=== PATIENT | female | born 1955 | race Caucasian/White ===

== ENCOUNTER 2018-05-16 15:38 | Emergency (ER) | payer OTHER ==
[2018-05-16] MEDS ORDERED: Adacel (T-DAP) 0.5 ML VIAL ONE (16:06)
--- NOTE | 2018-05-16 16:40 | CT ---
HEAD CT WITHOUT CONTRAST: 05/16/2018 HISTORY: Fall. Trauma. Pain. COMPARISON: 07/05/2016 TECHNIQUE: Serial axial CT imaging obtained at 5 mm intervals, from the vertex through the skull base, without c ontrast. FINDINGS: The imaged paranasal sinuses/mastoid air cells are well aerated. There is mild/moderate cerebral volume loss with associated prominence of the CSF containing spaces, a stable finding. There is no intracranial hemorrhage, midline shift, or mass effect. No displaced calvarial fracture. IMPRESSION: No intracranial hemorrhage or displaced calvarial fracture. POS: [facility]
== END 2018-05-16 17:54 ==
LOC: ERS 15:38
DX: S01.01XA Laceration without foreign body of scalp, initial encounter (principal); I10 Essential (primary) hypertension; G40.909 Epilepsy, unspecified, not intractable, without status epilepticus; F31.9 Bipolar disorder, unspecified; Z79.899 Other long term (current) drug therapy; Z79.01 Long term (current) use of anticoagulants; W22.8XXA Striking against or struck by other objects, initial encounter
CPT/HCPCS: 12001; 70450; 90471; 90715

== ENCOUNTER 2019-05-13 11:36 | Inpatient (IN) | payer OTHER ==
[2019-05-13 12:44] LABS: #Lymphocytes 1.8 thou/uL (1.20-3.40); #Neutrophils 7.6 thou/uL (1.40-6.50); %Basophils 0.3 % (0.0-1.0); %Eosinophils 0.1 % (0.0-10.0); %Lymphocytes 17.4 % (21.0-51.0); %Monocytes 9.4 % (0.0-10.0); %Neutrophils 72.8 % (42.0-75.0); Hemoglobin 13.5 g/dL (12.0-16.0); Mean Corpuscular HGB CONC 34.3 g/dL (32.0-36.0); Mean Corpuscular Hemoglobin 35.3 pg (27.0-31.0); Mean Platelet Volume 6.6 fL (7.4-10.4); Platelet Count 236 thou/uL (130-400); RBC Distribution Width 11.9 % (11.5-14.5); Red Blood Cell (RBC) Count 3.84 mill/uL (4.20-5.40); White Blood Cell (WBC) Count 10.4 thou/uL (4.8-10.8)
[2019-05-13 13:05] LABS: ALT (SGPT) 15 U/L (8-55); AST (SGOT) 21 U/L (5-34); Albumin 3.3 g/dL (3.4-4.8); Alkaline Phosphatase 147 U/L (40-110); Anion Gap 11 mmol/L (10-20); BUN (Urea Nitrogen) 12 mg/dL (9.8-20.1); Bilirubin, Total 0.3 mg/dL (0.2-1.2); Calc. Creatinine Clearance 0 mL/min (70-130); Calcium 8.6 mg/dL (7.8-10.44); Carbon Dioxide 25 mmol/L (23-31); Chloride 106 mmol/L (98-107); Estimated GFR-MDRD 88; Globulin 3.1 g/dL (2.4-3.5); Glucose 97 mg/dL (80-115); Potassium 3.8 mmol/L (3.5-5.1); Protein, Total 6.4 g/dL (6.0-8.3); Sodium 138 mmol/L (136-145)
--- NOTE | 2019-05-13 13:09 | RAD ---
SINGLE VIEW OF THE CHEST: COMPARISON: None. HISTORY: Fall and altered mental status. FINDINGS: Single view of the chest shows a normal sized cardiomediastinal silhouette. There is no evidence of c onsolidation, mass, or pleural effusion. The bones are unremarkable. IMPRESSION: No evidence of acute cardiopulmonary disease. POS: [facility]
--- NOTE | 2019-05-13 13:21 | ULT ---
RIGHT UPPER EXTREMITY VENOUS ULTRASOUND: CLINICAL HISTORY: Swelling. FINDINGS: There is prominent soft tissue heterogeneity and edema of the right upper extremity which may be on t he basis of prominent sized hematoma. No evidence of deep vein thrombosis is seen, although evaluation is limited due to extensive edema an d soft tissue hematoma. IMPRESSION: 1. Prominent, heterogeneous region of the right upper extremity soft tissues, suggestive of hematoma with surrounding edema. Correlate clinically. 2. No evidence of deep venous thrombosis involving right upper extremity, within limitations. Transcribed Date/Time: 05/13/2019 1:28 PM
[2019-05-13 13:58] LABS: Bilirubin Negative (Negative); Blood, Urine Trace (Negative); Clarity Clear (Clear); Glucose, Urine (Dipstick) Normal (Negative); Leukocyte 25 Leu/uL (Negative); Nitrite Negative (Negative); Protein, Urine (Dipstick) 20 mg/dL (Neg-Trace); Urobilinogen 3 mg/dL (Less than 2)
[2019-05-13 14:07] LABS: Bacteria/HPF 1+ HPF (None Seen)
[2019-05-13] MEDS ORDERED: cefTRIAXone\\ROCEPHIN 2 GM VIAL ONE (14:43)
[2019-05-13] MEDS ORDERED: Acetaminophen 325 MG TAB PO PRN (17:54)
[2019-05-13] MEDS ORDERED: Ondansetron ODT 4 MG TAB SL PRN (17:54)
[2019-05-13] MEDS ORDERED: Sodium Chloride 0.9% 1,000 ML IV SCH (17:54)
[2019-05-13] MEDS ORDERED: Ondansetron PF 4 MG/2 ML Vial IVP PRN (17:54)
[2019-05-13 21:14] VITALS: BMI 22.3
[2019-05-14] MEDS ORDERED: Prevnar 13-Val Conj/PF 0.5 ML SYRINGE IM ONE (09:00)
[2019-05-14] MEDS ORDERED: Sodium Chloride 0.9% 1,000 ML IV SCH (09:00)
[2019-05-14] MEDS ORDERED: FLU VACC TS2019-20(65YR UP)/PF 180 MCG/0.5 ML SYRINGE IM ONE (09:00)
[2019-05-14] MEDS ORDERED: Milk Of Magnesia 30 ML UDCUP PO PRN (09:00)
[2019-05-14] MEDS ORDERED: Bisacodyl 10 MG SUPP PR PRN (09:01)
[2019-05-14] MEDS ORDERED: Acetaminophen 325 MG TAB PO PRN (09:02)
[2019-05-14] MEDS: Vancomycin HCl 1 GM in Premix Bag 1 BAG IVPB SCH ×2 (10:27→20:29)
[2019-05-14] MEDS: Phenytoin 50 MG Chewable Tablet PO SCH ×3 (10:30→20:30)
[2019-05-14] MEDS: levETIRAcetam 500 mg/5 ml Oral Solution PO SCH ×2 (10:30→20:24)
[2019-05-14] MEDS: Lisinopril 10 MG TAB PO SCH (10:30)
[2019-05-14] MEDS: Aspirin Chewable 81 MG TAB PO SCH (10:30)
[2019-05-14] MEDS: Polyethylene Glycol 3350 17 GM Packet PO SCH (10:31)
[2019-05-14] MEDS ORDERED: cefTRIAXone\\ROCEPHIN 2 GM in Sodium Chloride 0.9% 100 ML IVPB SCH (18:00)
[2019-05-14] MEDS: Dextrose 5 %-0.45 % NaCl 1,000 ML IV SCH (18:12)
[2019-05-14] MEDS: Mirtazapine 15 MG TAB PO SCH (20:27)
[2019-05-14] MEDS: Atorvastatin Calcium 20 MG TAB PO SCH (20:27)
[2019-05-14] MEDS: busPIRone HCl 10 MG TAB PO SCH (20:27)
--- NOTE | 2019-05-14 23:54 | HP ---
CHIEF COMPLAINT: Right upper arm swelling. HISTORY OF PRESENT ILLNESS: Ms. Handley is a 63-year-old female with past medical history of multi-infarct dementia, seizure disorder, who was noted to have right upper arm swelling with ecchymosis. The patient had a fall about 10 days ago. There was no swelling at that time, then swelling was noticed day before yesterday, which was quite marked in the right upper arm with a lot of ecchymosis along the forearm and upper arm, and it was warm to touch and tender. In view of that, the patient was transferred to the hospital. In the ER, the patient was evaluated and found to have a hematoma in the right upper arm with possible secondary infection, where the patient had fever. The ultrasound revealed large hematoma along with some surrounding edema. The patient was given Rocephin and vancomycin in the ER and was started on IV fluids as well. PAST MEDICAL HISTORY: 1. Multi-infarct dementia. 2. Seizure disorder. 3. History of bipolar disorder. 4. History of sepsis. 5. History of pulmonary embolism and DVT status post IVC filter in 2017. CURRENT MEDICATIONS: The patient is on: 1. Tylenol p.r.n. 2. Aspirin 81 mg daily. 3. Lipitor 20 mg daily. 4. Bisacodyl 10 mg p.r.n. daily. 5. BuSpar 20 mg b.i.d. 6. Vitamin D 2000 units daily. 7. Keppra 500 b.i.d. 8. Lisinopril 10 mg daily. 9. Milk of magnesia p.r.n. 10. Remeron 15 mg at bedtime. 11. Dilantin 50 t.i.d. 12. MiraLAX 17 g daily. ALLERGIES: CODEINE. FAMILY HISTORY: Nothing contributory. SOCIAL HISTORY: The patient lives [place]. No history of smoking. No history of alcohol. REVIEW OF SYSTEMS: Unable to obtain as patient is awake but not communicating and nonverbal. PHYSICAL EXAMINATION: VITAL SIGNS: Temperature 100.7, pulse 104, respirations 20, blood pressure 120/ 70. HEENT: Head is normocephalic and atraumatic. Pupils are equal and reactive. Nasopharynx is pale and dry. Hard and soft palate; no lesions. Skin turgor decreased. NECK: Supple. No JVD. LUNGS: Bilateral air entry present. No rales. No rhonchi. HEART: S1 and S2, regular. ABDOMEN: Soft. No distention. No tenderness. Normal bowel sounds present. RECTAL: Deferred. CENTRAL NERVOUS SYSTEM: No focal deficit. EXTREMITIES: Right upper arm is markedly swollen. There is ecchymosis and also it is warm to touch, it is tender. The ecchymosis extends to the right forearm as well. Elbow movements are restricted a little bit. There is some pitting edema of the right elbow area. LABORATORY DATA: CBC shows WBC 10, hemoglobin 13, hematocrit 39, and platelets 236. Metabolic pane: Sodium 138, potassium 3.7, chloride 100, creatinine 0.6, glucose 147. UA shows wbc's 11-20, bacteria 1+. Vascular ultrasound showed hematoma right upper arm with surrounding edema. Chest x-ray negative. ASSESSMENT: 1. Status post fall with hematoma, right upper arm, possibly infected. 2. Urinary tract infection. 3. Dementia, multiinfarct. 4. Bipolar disorder. 5. Seizure disorder. 6. Status post IVC filter for deep vein thrombosis and pulmonary embolism. PLAN: 1. Vital signs q.4 hours. 2. Activity as tolerated. 3. Allergies, codeine. 4. IV fluids D5 half at 70 mL/h. 5. Continue intermediate medications. 6. Vancomycin 1 g IV piggyback q.12 hours. 7. Rocephin 2 g IV piggyback daily. 8. We will repeat labs in the morning, Dilantin level in the morning. Job ID: [id number] [facility]
[2019-05-15 05:33] LABS: #Basophils 0.1 thou/uL (0.0-0.2); #Lymphocytes 0.3 thou/uL (1.20-3.40); #Monocytes 0.4 thou/uL (0.11-0.59); #Neutrophils 7.5 thou/uL (1.40-6.50); %Basophils 0.9 % (0.0-1.0); %Eosinophils 0.1 % (0.0-10.0); %Monocytes 4.7 % (0.0-10.0); %Neutrophils 90.4 % (42.0-75.0); Hemoglobin 11.8 g/dL (12.0-16.0); Mean Corpuscular HGB CONC 34.6 g/dL (32.0-36.0); Mean Corpuscular Hemoglobin 34.8 pg (27.0-31.0); Mean Platelet Volume 6.5 fL (7.4-10.4); Platelet Count 162 thou/uL (130-400); RBC Distribution Width 11.6 % (11.5-14.5); Red Blood Cell (RBC) Count 3.37 mill/uL (4.20-5.40); White Blood Cell (WBC) Count 8.3 thou/uL (4.8-10.8)
[2019-05-15 05:50] LABS: Anion Gap 8 mmol/L (10-20); BUN (Urea Nitrogen) 6 mg/dL (9.8-20.1); Calc. Creatinine Clearance 79 mL/min (70-130); Calcium 7.8 mg/dL (7.8-10.44); Carbon Dioxide 21 mmol/L (23-31); Chloride 106 mmol/L (98-107); Dilantin 2.6 ug/mL (10.0-20.0); Estimated GFR-MDRD Greater than 90; Glucose 138 mg/dL (80-115); Sodium 132 mmol/L (136-145)
[2019-05-15] MEDS: cefTRIAXone\\ROCEPHIN 2 GM in Sodium Chloride 0.9% 100 ML IVPB SCH (09:05)
[2019-05-15] MEDS: levETIRAcetam 500 mg/5 ml Oral Solution PO SCH ×2 (09:10→21:30)
[2019-05-15] MEDS: Dextrose 5 %-0.45 % NaCl 1,000 ML IV SCH (09:10)
[2019-05-15] MEDS: Phenytoin 50 MG Chewable Tablet PO SCH ×3 (09:11→21:30)
[2019-05-15] MEDS: busPIRone HCl 10 MG TAB PO SCH ×2 (09:19→21:30)
[2019-05-15] MEDS: Lisinopril 10 MG TAB PO SCH (09:19)
[2019-05-15] MEDS: Polyethylene Glycol 3350 17 GM Packet PO SCH (09:20)
[2019-05-15] MEDS: Aspirin Chewable 81 MG TAB PO SCH (09:20)
[2019-05-15] MEDS: Vancomycin HCl 1 GM in Premix Bag 1 BAG IVPB SCH ×2 (09:33→22:13)
[2019-05-15 20:54] LABS: Vancomycin, Trough 11.2 ug/mL
[2019-05-15] MEDS: Mirtazapine 15 MG TAB PO SCH (21:30)
[2019-05-15] MEDS: Atorvastatin Calcium 20 MG TAB PO SCH (21:30)
[2019-05-15] MEDS: Acetaminophen 650 MG Suppository PR PRN (21:43)
[2019-05-15] MEDS: Vancomycin HCl 750 MG in Sodium Chloride 0.9% 250 ML 250 ML IVPB SCH (22:00)
[2019-05-16] MEDS: Vancomycin HCl 750 MG in Sodium Chloride 0.9% 250 ML 250 ML IVPB SCH ×3 (05:10→21:55)
[2019-05-16] MEDS: Dextrose 5 %-0.45 % NaCl 1,000 ML IV SCH (05:11)
[2019-05-16] MEDS: busPIRone HCl 10 MG TAB PO SCH ×2 (08:45→21:55)
[2019-05-16] MEDS: cefTRIAXone\\ROCEPHIN 2 GM in Sodium Chloride 0.9% 100 ML IVPB SCH (08:46)
[2019-05-16] MEDS: Lisinopril 10 MG TAB PO SCH (08:48)
[2019-05-16] MEDS: Phenytoin 50 MG Chewable Tablet PO SCH ×3 (08:49→21:55)
[2019-05-16] MEDS: levETIRAcetam 500 mg/5 ml Oral Solution PO SCH ×2 (08:49→21:55)
[2019-05-16] MEDS: Aspirin Chewable 81 MG TAB PO SCH (08:49)
[2019-05-16] MEDS: Polyethylene Glycol 3350 17 GM Packet PO SCH (08:51)
[2019-05-16] MEDS ORDERED: Sodium Chloride 0.9% 500 ML IV SCH (12:00)
--- NOTE | 2019-05-16 15:06 | CON ---
DATE OF CONSULTATION: 05/16/2019 REASON FOR CONSULTATION: Fever. HISTORY OF PRESENT ILLNESS: A 63-year-old, who has a history of dementia, probably multi-infarct, who is a residential resident, and I had seen in July 2016. At that time, she had a prior history of parotitis with MSSA bacteremia and a right lower extremity DVT managed with IVC filter. This time, she presents with a laceration of scalp after a fall and right upper extremity swelling with bruising. Ultrasound was done, which showed tissue heterogeneity in the edema of right upper extremity without evidence of deep vein thrombosis. I do not see any imaging studies of the extremity here. On admission, she was given Rocephin and vancomycin. Currently, Ms. Handley does not open her eyes. The only thing she responds to is food offerings, that we will elicit chewing on her part and swallowing. No evidence of aspiration. No diarrhea. She is voiding in the diaper. PAST MEDICAL HISTORY: Multi-infarct dementia; seizure disorder; bipolar disorder; sepsis; prior MSSA bacteremia; and pulmonary embolism in the past, status post IVC filter in 2016; seizure activity. ALLERGIES: CODEINE. FAMILY HISTORY: Noncontributory. SOCIAL HISTORY: Never smoker. [facility] resident. CURRENT MEDICATIONS: 1. Tylenol. 2. Aspirin. 3. Lipitor. 4. Dulcolax. 5. BuSpar. 6. Ceftriaxone. 7. Keppra. 8. Remeron. 9. Dilantin. 10. MiraLAX. 11. Vancomycin. PHYSICAL EXAMINATION: VITAL SIGNS: T-max 101.7 yesterday at 8 a.m. BP is now 76/46, I am not sure if this is accurate. Pulse 88, respirations 16, O2 saturation 95%. SKIN: Shows the area of swelling in the right arm with bruising extending from the axilla towards the elbow. No erythema noted. The patient has a peripheral IV access. LYMPHATICS: No lymphadenopathy. HEENT: Ocular movements are conjugate. Oral cavity, not possible to evaluate because the patient did not cooperate. NECK: Supple. LUNGS: With symmetric, clear breath sounds. HEART: S1 and S2. Regular rate. No jugular vein distention. ABDOMEN: A little bit taut. Bladder distention is possible. No organomegaly or ascites. Bowel sounds are present, but not increased. EXTREMITIES: She does not move extremities. She has some increase in tonicity of the muscles. LABORATORY DATA: White cell count is 10.4, hemoglobin 8.3, platelets 236, 72% neutrophils and now up to 90%. Sodium 138, creatinine 0.67. Liver profile with alkaline phosphatase 147, transaminases normal, albumin 3.3. Urinalysis with 11 to 20 wbc's, and phenytoin was 2.6. ASSESSMENT: Multi-infarct dementia, seizure activity, parotitis with methicillin-sensitive Staphylococcus aureus bacteremia in the past, deep vein thrombosis with inferior vena cava filter, fever recurrence, and fall with bruising of the right upper extremity. DISCUSSION: Differential diagnosis includes fever secondary to hematoma in the right upper extremity versus an alternate process. The other main possibility would be urinary retention. We will check bladder scan to measure postvoid residual. Pneumonia is not likely at this point in time, but may have to order a CT of chest. It appears the patient has a do not resuscitate order. I think that palliative care would be a reasonable approach without any further evaluation. Hematomas following fractures can be associated with fever. I do not see any imaging study to evaluate the humerus. May want to order an x-ray of the right humerus to make sure she did not have a fracture. Job ID: [id number]
--- NOTE | 2019-05-16 15:13 | RAD ---
Exam:2 views right humerus HISTORY: Fall. Pain. Bruising COMPARISON: None FINDINGS: No fracture. No cortical irregularity. No periosteal reaction IMPRESSION: No fracture.
[2019-05-16] MEDS: Acetaminophen 650 MG Suppository PR PRN (17:15)
[2019-05-16 21:52] LABS: Vancomycin, Trough 16.9 ug/mL
[2019-05-16] MEDS: Atorvastatin Calcium 20 MG TAB PO SCH (21:55)
[2019-05-16] MEDS: Mirtazapine 15 MG TAB PO SCH (21:55)
[2019-05-17] MEDS: Dextrose 5 %-0.45 % NaCl 1,000 ML IV SCH ×2 (05:10→20:16)
[2019-05-17] MEDS: Vancomycin HCl 750 MG in Sodium Chloride 0.9% 250 ML 250 ML IVPB SCH ×3 (05:10→21:34)
[2019-05-17 05:52] LABS: #Lymphocytes 0.4 thou/uL (1.20-3.40); #Monocytes 0.4 thou/uL (0.11-0.59); #Neutrophils 2.7 thou/uL (1.40-6.50); %Basophils 0.1 % (0.0-1.0); %Eosinophils 0.2 % (0.0-10.0); %Lymphocytes 10.8 % (21.0-51.0); %Monocytes 11.6 % (0.0-10.0); %Neutrophils 77.2 % (42.0-75.0); Hemoglobin 10.3 g/dL (12.0-16.0); Mean Corpuscular HGB CONC 34.7 g/dL (32.0-36.0); Mean Corpuscular Hemoglobin 34.4 pg (27.0-31.0); Mean Corpuscular Volume 99.2 fL (78.0-98.0); Mean Platelet Volume 6.5 fL (7.4-10.4); Platelet Count 145 thou/uL (130-400); RBC Distribution Width 11.7 % (11.5-14.5); Red Blood Cell (RBC) Count 2.99 mill/uL (4.20-5.40); White Blood Cell (WBC) Count 3.6 thou/uL (4.8-10.8)
[2019-05-17 06:18] LABS: Anion Gap 9 mmol/L (10-20); BUN (Urea Nitrogen) 5 mg/dL (9.8-20.1); Calc. Creatinine Clearance 82 mL/min (70-130); Calcium 7.8 mg/dL (7.8-10.44); Carbon Dioxide 20 mmol/L (23-31); Chloride 108 mmol/L (98-107); Estimated GFR-MDRD Greater than 90; Glucose 109 mg/dL (80-115); Sodium 134 mmol/L (136-145)
[2019-05-17 06:29] LABS: Potassium 2.9 mmol/L (3.5-5.1)
[2019-05-17] MEDS ORDERED: Potassium Chloride 20 MEQ in Premix Bag 1 BAG IVPB SCH ×2 (06:45→10:00)
[2019-05-17] MEDS: cefTRIAXone\\ROCEPHIN 2 GM in Sodium Chloride 0.9% 100 ML IVPB SCH (08:34)
[2019-05-17] MEDS: busPIRone HCl 10 MG TAB PO SCH ×2 (08:35→20:15)
[2019-05-17] MEDS: Phenytoin 50 MG Chewable Tablet PO SCH ×3 (08:36→20:14)
[2019-05-17] MEDS: Aspirin Chewable 81 MG TAB PO SCH (08:37)
[2019-05-17] MEDS: levETIRAcetam 500 mg/5 ml Oral Solution PO SCH ×2 (08:38→20:14)
[2019-05-17] MEDS: Polyethylene Glycol 3350 17 GM Packet PO SCH (08:44)
[2019-05-17 16:55] LABS: Potassium 3.6 mmol/L (3.5-5.1)
[2019-05-17] MEDS: Potassium Chloride 20 MEQ TAB PO SCH ×2 (18:44→21:30)
[2019-05-17] MEDS: Mirtazapine 15 MG TAB PO SCH (20:15)
[2019-05-17] MEDS: Atorvastatin Calcium 20 MG TAB PO SCH (20:15)
[2019-05-18] MEDS: Vancomycin HCl 750 MG in Sodium Chloride 0.9% 250 ML 250 ML IVPB SCH (05:31)
[2019-05-18 06:23] LABS: Anion Gap 12 mmol/L (10-20); BUN (Urea Nitrogen) 5 mg/dL (9.8-20.1); Calc. Creatinine Clearance 75 mL/min (70-130); Carbon Dioxide 19 mmol/L (23-31); Chloride 108 mmol/L (98-107); Estimated GFR-MDRD Greater than 90; Glucose 119 mg/dL (80-115); Potassium 3.3 mmol/L (3.5-5.1); Sodium 136 mmol/L (136-145)
[2019-05-18] MEDS: cefTRIAXone\\ROCEPHIN 2 GM in Sodium Chloride 0.9% 100 ML IVPB SCH (08:31)
[2019-05-18] MEDS: Polyethylene Glycol 3350 17 GM Packet PO SCH (08:34)
[2019-05-18] MEDS: busPIRone HCl 10 MG TAB PO SCH ×2 (08:35→21:56)
[2019-05-18] MEDS: levETIRAcetam 500 mg/5 ml Oral Solution PO SCH ×2 (08:35→21:57)
[2019-05-18] MEDS: Aspirin Chewable 81 MG TAB PO SCH (08:35)
[2019-05-18] MEDS: Phenytoin 50 MG Chewable Tablet PO SCH ×3 (08:35→21:56)
[2019-05-18] MEDS ORDERED: Loperamide HCl 2 MG CAP PO PRN (09:27)
[2019-05-18] MEDS: Dextrose 5 %-0.45 % NaCl 1,000 ML IV SCH ×2 (10:26→22:04)
[2019-05-18] MEDS: Potassium Chloride 20 MEQ TAB PO SCH ×3 (10:29→18:11)
--- NOTE | 2019-05-18 12:15 | PRG ---
DATE OF SERVICE: 05/18/2019 SUBJECTIVE: The patient appears stable at this moment. Does not answer questions. Does not follow commands. OBJECTIVE: VITAL SIGNS: T-max 99.7. HEENT: Ocular movements are conjugate. LUNGS: Symmetric air entry. HEART: S1 and S2. Regular rate. ABDOMEN: Soft. EXTREMITIES: The area of bruising in the right upper extremity associated with a recent fall. DIAGNOSTIC STUDIES: Postvoid residual is normal, and she has had no evidence of bacteremia identified. The organisms isolated likely represent contamination of the sample rather than true bacteremia. White cell count is at 3.6, hemoglobin 10.3. Creatinine 0.61. ASSESSMENT AND DISCUSSION: Multi-infarct dementia, seizure activity, parotitis in the past with methicillin-sensitive Staphylococcus aureus bacteremia without recurrence demonstrated yet, prior deep venous thrombosis with inferior vena cava filter, now with falls and bruising in right upper extremity with hematoma formation. Fever likely due to the hematoma in view of negative cultures. Discontinue antimicrobial therapy and observe. Job ID: [id number]
[2019-05-18] MEDS: Atorvastatin Calcium 20 MG TAB PO SCH (21:56)
[2019-05-18] MEDS: Mirtazapine 15 MG TAB PO SCH (21:57)
[2019-05-19 06:46] LABS: Anion Gap 10 mmol/L (10-20); BUN (Urea Nitrogen) 4 mg/dL (9.8-20.1); Calc. Creatinine Clearance 75 mL/min (70-130); Calcium 8.1 mg/dL (7.8-10.44); Carbon Dioxide 21 mmol/L (23-31); Chloride 109 mmol/L (98-107); Estimated GFR-MDRD Greater than 90; Glucose 126 mg/dL (80-115); Potassium 3.7 mmol/L (3.5-5.1); Sodium 136 mmol/L (136-145)
[2019-05-19 07:23] VITALS: BP 156/78; TEMP 97.7
[2019-05-19] MEDS: Aspirin Chewable 81 MG TAB PO SCH (08:33)
[2019-05-19] MEDS: Phenytoin 50 MG Chewable Tablet PO SCH ×2 (08:33→15:58)
[2019-05-19] MEDS: busPIRone HCl 10 MG TAB PO SCH (08:33)
[2019-05-19] MEDS: levETIRAcetam 500 mg/5 ml Oral Solution PO SCH (08:33)
[2019-05-19] MEDS: Polyethylene Glycol 3350 17 GM Packet PO SCH (08:34)
== END 2019-05-19 16:25 | DRG 605 ==
LOC: ERS 11:36 → T4-A 18:41
PROVIDERS: ADMIT Internal Medicine; ATTEND Internal Medicine
DX: S40.021A Contusion of right upper arm, initial encounter (principal); N39.0 Urinary tract infection, site not specified; Z66 Do not resuscitate; F03.90 Unspecified dementia, unspecified severity, without behavioral disturbance, psychotic disturbance, mood disturbance, and anxiety; F31.9 Bipolar disorder, unspecified; G40.909 Epilepsy, unspecified, not intractable, without status epilepticus; W18.30XA Fall on same level, unspecified, initial encounter; Z88.5 Allergy status to narcotic agent; Z79.899 Other long term (current) drug therapy; Z79.82 Long term (current) use of aspirin; Z86.718 Personal history of other venous thrombosis and embolism; Z86.711 Personal history of pulmonary embolism
CPT/HCPCS: 36415; 36416; 51701; 71045; 80048; 80053; 80177; 80185; 80202; 81003; 81015; 83605; 83735; 85025; 87040; 87045; 87046; 87086; 87149; 87324; 87427; 87449; 87804; 96360; 96365; 96366; 96367; A4353; J0696; J3370; J3480; J3490; J7050

== ENCOUNTER 2019-05-27 12:50 | Inpatient (IN) | payer OTHER ==
[2019-05-27 13:48] LABS: #Lymphocytes 1.4 thou/uL (1.20-3.40); #Monocytes 0.8 thou/uL (0.11-0.59); #Neutrophils 5.8 thou/uL (1.40-6.50); %Basophils 0.3 % (0.0-1.0); %Eosinophils 0.3 % (0.0-10.0); %Lymphocytes 17.1 % (21.0-51.0); %Monocytes 10.4 % (0.0-10.0); Hemoglobin 13.5 g/dL (12.0-16.0); Mean Corpuscular Hemoglobin 34.9 pg (27.0-31.0); Mean Platelet Volume 6.1 fL (7.4-10.4); Platelet Count 343 thou/uL (130-400); RBC Distribution Width 12.2 % (11.5-14.5); Red Blood Cell (RBC) Count 3.87 mill/uL (4.20-5.40)
[2019-05-27 13:56] LABS: PTT 25.6 SEC (22.9-36.1)
--- NOTE | 2019-05-27 13:58 | RAD ---
LEFT WRIST 3 VIEWS: HISTORY: Swelling and pain. FINDINGS: Carpals appear intact. There are degenerative changes at the 1st carpometacarpal joint. No fracture or acute osseous abnormality. IMPRESSION: No acute osseous abnormality. POS: OFF
--- NOTE | 2019-05-27 13:59 | RAD ---
LEFT FOREARM 2 VIEWS: HISTORY: Pain and edema. FINDINGS/IMPRESSION: Radius and ulna appear intact. No osseous abnormality identified. POS: OFF
[2019-05-27 14:09] LABS: CRP (Inflammatory) 1.14 mg/dL (= or < 0.5); Magnesium 2.2 mg/dL (1.6-2.6)
[2019-05-27 14:12] LABS: ALT (SGPT) 25 U/L (8-55); AST (SGOT) 32 U/L (5-34); Albumin 3.6 g/dL (3.4-4.8); Alkaline Phosphatase 198 U/L (40-110); Anion Gap 11 mmol/L (10-20); BUN (Urea Nitrogen) 8 mg/dL (9.8-20.1); Bilirubin, Total 0.3 mg/dL (0.2-1.2); Calc. Creatinine Clearance 0 mL/min (70-130); Calcium 8.8 mg/dL (7.8-10.44); Carbon Dioxide 26 mmol/L (23-31); Chloride 107 mmol/L (98-107); Estimated GFR-MDRD 87; Globulin 3.2 g/dL (2.4-3.5); Glucose 95 mg/dL (80-115); Lipase 28 U/L (8-78); Potassium 4.2 mmol/L (3.5-5.1); Protein, Total 6.8 g/dL (6.0-8.3); Sodium 140 mmol/L (136-145)
--- NOTE | 2019-05-27 14:34 | ULT ---
VENOUS DUPLEX STUDY LEFT UPPER EXTREMITY: INDICATION: Left upper extremity pain and swelling. FINDINGS: The left internal jugular vein is patent. The left subclavian vein shows normal flow with Doppler. The left axillary vein, brachial vein, and cephalic vein are patent and show normal flow. The left basilic vein is occluded from the antecubital fossa to the axilla. IMPRESSION: Venous thrombosis involving the left basilic vein. POS: OFF
[2019-05-27] MEDS ORDERED: Enoxaparin Sodium 60 MG/0.6 ML SYRINGE ONE (14:56)
[2019-05-27] MEDS ORDERED: Acetaminophen 325 MG TAB PO PRN (15:39)
--- NOTE | 2019-05-27 16:41 | HP ---
PCP: Andres Baeza MD CHIEF COMPLAINT: Left forearm redness, swelling, warmth. HISTORY OF PRESENT ILLNESS: Ms. Handley is a 63-year-old female who is a resident of [facility], who was found to have some left forearm swelling, erythema, and warmth. It was noted that it was not there yesterday. The patient has been a resident of the fpc for some time. History has been obtained from the EMS, and [place] [facility] who was contacted today after admission for some history. Staff reports that forearm was normal yesterday and when they went to check on her this morning, they noticed it was red, warm, and a little swollen. There is no record of any fall, any injury. She was admitted here 2 weeks ago, discharged on the with a possible septic hematoma on the right arm. Nursing staff when prompted states that it is quite possible she had a peripheral IV on her left arm with a bandage when she returned back to [facility] on the . She was taken off her Xarelto on the after her hospitalization for hematoma and today, she was found to have a CRP of 1.14, CK of 1380, and ultrasound of the left arm shows a venous thrombosis involving the left basilic vein. She was given a dose of Lovenox 1 mg/kg and then admitted for rhabdo and DVT. The patient is nonverbal. [facility]PC reports that she is non-mobile as well. The patient will be admitted to the medical floor for further management. REVIEW OF SYSTEMS: The patient is nonverbal at baseline, and review of systems was not able to be obtained. PHYSICAL EXAMINATION: VITAL SIGNS: Blood pressure is 138/84, pulse is 87, respiratory rate is 16, temperature is 99, and O2 sats are 97% on room air. Pain is unable to determine. CONSTITUTIONAL: The patient appears nontoxic. She will follow some with her eyes, but is nonverbal at baseline. HEENT: Head is atraumatic and normocephalic. Eyes, pupils are normal to inspection. Pupils are equally round and reactive to light. ENT, mouth exam is normal. Mucous membranes are moist. NECK: Normal range of motion. Trachea is midline. RESPIRATORY/CHEST: Breath sounds are clear. Chest expansion is equal. CARDIOVASCULAR: Regular rate and rhythm. Heart sounds are normal. ABDOMEN: Nontender. Bowel sounds are heard. BACK: Normal inspection. 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 Does not appear to be tender on palpation. EXTREMITIES: Upper extremity erythema, swelling, warmth to the left anterior distal forearm with a 2-cm bulla that is empty. No purulent drainage. Radial pulses are equal. Lower extremity, normal inspection. Pedal pulses are normal. Skin is visualized, is warm and dry, normal in color with the exception of the erythema and warmth to the distal left forearm with the bulla formation. There is some area of erythema to the left shoulder. PAST MEDICAL HISTORY: Multi-infarct dementia, seizure disorder, history of bipolar disorder, history of sepsis, history of pulmonary emboli and DVT, status post IVC filter, status post right arm hematoma thought to be possibly septic. CURRENT MEDICATIONS: 1. Tylenol. 2. Aspirin 81 mg daily. 3. Lipitor 20 mg p.o. daily. 4. Bisacodyl 10 mg p.r.n. as needed. 5. BuSpar 20 mg b.i.d. 6. Vitamin D 2000 units daily. 7. Keppra 500 mg p.o. b.i.d. 8. Lisinopril 10 mg daily. 9. Milk of Mag p.r.n. 10. Remeron 50 mg at bedtime. 11. Dilantin 50 mg t.i.d. 12. MiraLAX 17 g daily. ALLERGIES: CODEINE. FAMILY HISTORY: Nothing contributory. SOCIAL HISTORY: The patient lives in a fpc in [place]. There is no documented history of smoking or history of alcohol. Per the fpc, the patient has an adult hospital DNR, and per the fpc, there is no family to contact, and she has a guardian. ASSESSMENT: 1. Left venous deep venous thrombosis, upper extremity. Lovenox has been started 1 mL per kg. We will continue this b.i.d., most likely changed to be p.o. in the next day or 2. 2. Dementia, multi-infarct. We will continue home medications. 3. Bipolar disorder. Continue home medications. 4. Seizure disorder. Continue home medications. 5. Status post inferior vena cava filter for deep venous thrombosis and pulmonary emboli. 6. Rhabdomyolysis. Fluid we have given in the ER. We will continue normal saline 100 mL per hour. We will recheck CK in the morning. 7. GI prophylaxis started. DVT prophylaxis with Lovenox. Hospital course dependent on clinical findings. Case discussed with Dr. Ray who agrees with plan. Job ID: [id number]
[2019-05-27] MEDS: Sodium Chloride 0.9% 1,000 ML IV SCH (16:43)
[2019-05-27 17:31] LABS: Bacteria/HPF None Seen HPF (None Seen); Bilirubin Negative (Negative); Clarity Clear (Clear); Glucose, Urine (Dipstick) Normal (Negative); Leukocyte Negative Leu/uL (Negative); Mucous/LPF Rare LPF (<2+); Nitrite Negative (Negative); Protein, Urine (Dipstick) Negative (Neg-Trace); Squamous Epithelial 0-3 HPF (0-3); Urobilinogen Normal mg/dL (Less than 2); WBC/HPF 0-3 HPF (0-3)
[2019-05-27 17:34] LABS: Blood, Urine Trace (Negative)
[2019-05-27 17:35] LABS: Urine Culture Reflex No No
[2019-05-27] MEDS: Famotidine 20 MG TAB PO SCH (21:02)
[2019-05-28] MEDS: Sodium Chloride 0.9% 1,000 ML IV SCH ×3 (01:15→21:24)
[2019-05-28 06:40] LABS: #Lymphocytes 1.2 thou/uL (1.20-3.40); #Monocytes 0.5 thou/uL (0.11-0.59); #Neutrophils 3.7 thou/uL (1.40-6.50); %Basophils 0.4 % (0.0-1.0); %Eosinophils 0.3 % (0.0-10.0); %Lymphocytes 22.3 % (21.0-51.0); %Monocytes 9.6 % (0.0-10.0); %Neutrophils 67.5 % (42.0-75.0); Hemoglobin 12.1 g/dL (12.0-16.0); Mean Corpuscular HGB CONC 34.1 g/dL (32.0-36.0); Mean Corpuscular Hemoglobin 35.1 pg (27.0-31.0); Mean Platelet Volume 6.1 fL (7.4-10.4); Platelet Count 296 thou/uL (130-400); RBC Distribution Width 12.1 % (11.5-14.5); Red Blood Cell (RBC) Count 3.44 mill/uL (4.20-5.40); White Blood Cell (WBC) Count 5.4 thou/uL (4.8-10.8)
[2019-05-28 07:01] LABS: Anion Gap 9 mmol/L (10-20); BUN (Urea Nitrogen) 9 mg/dL (9.8-20.1); CK (CPK) 871 U/L (29-168); Calc. Creatinine Clearance 77 mL/min (70-130); Calcium 8.2 mg/dL (7.8-10.44); Carbon Dioxide 24 mmol/L (23-31); Chloride 111 mmol/L (98-107); Estimated GFR-MDRD Greater than 90; Glucose 100 mg/dL (80-115); Potassium 4.1 mmol/L (3.5-5.1); Sodium 140 mmol/L (136-145)
[2019-05-28] MEDS: Famotidine 20 MG TAB PO SCH ×2 (07:35→20:28)
--- NOTE | 2019-05-28 08:11 | PRG ---
DATE OF SERVICE: 05/28/2019 SUBJECTIVE: The patient is seen and examined at the bedside. She is nonverbal. She is in deep sleep. During my visit, she does not want to wake up and she does not follow my commands. She is very uncooperative. OBJECTIVE: LUNGS: Her lung sounds clear. HEART: S1, S2 normal. ABDOMEN: soft, nondistended. EXTREMITIES: No clubbing or cyanosis. There is some edema of the left and some of the right upper extremity. The dressing is in place over the left forearm. Urologically not possible to examine her. She does not follow. She does not want to wake up and open her eyes. LABORATORY DATA: White count of 5.4, hemoglobin of 12.1, hematocrit 35.5, platelet count is 296,000. Sodium 140, potassium 4.1, chloride 111, CO2 of 24, BUN 9, creatinine 0.65, glucose 100, calcium 8.2, and creatine kinase is down to 871. IMPRESSION: 1. Left upper extremity venous thrombosis on Lovenox 1 mg/kg q.12 hours subcutaneously. We will continue that treatment. 2. Dementia, multi-infarct. 3. Bipolar disorder. 4. Seizure disorder. 5. Status post inferior vena cava filter for DVT thrombosis and pulmonary emboli. 6. Rhabdomyolysis with significant improvement on her CPK down from 1300s to 800s. We will continue her rate of normal saline at 100 mL/h. Job ID: [id number]
[2019-05-28] MEDS ORDERED: FLU VACC TS2019-20(65YR UP)/PF 180 MCG/0.5 ML SYRINGE IM ONE (09:00)
[2019-05-28] MEDS ORDERED: Prevnar 13-Val Conj/PF 0.5 ML SYRINGE IM ONE (09:00)
[2019-05-28] MEDS: Enoxaparin Sodium 60 MG/0.6 ML SYRINGE SC SCH ×2 (10:21→20:28)
[2019-05-29] MEDS ORDERED: Loperamide HCl 2 MG CAP PO PRN (00:12)
[2019-05-29] MEDS ORDERED: Bisacodyl 10 MG SUPP PR PRN (00:12)
[2019-05-29] MEDS ORDERED: Milk Of Magnesia 30 ML UDCUP PO PRN (00:12)
[2019-05-29] MEDS ORDERED: Acetaminophen 650 MG Suppository PR PRN (00:21)
[2019-05-29] MEDS ORDERED: levETIRAcetam 500 mg/5 ml Oral Solution PO SCH (00:30)
[2019-05-29] MEDS: Sodium Chloride 0.9% 1,000 ML IV SCH ×2 (06:10→16:30)
[2019-05-29] MEDS: Phenytoin 50 MG Chewable Tablet PO SCH ×3 (07:51→20:30)
[2019-05-29] MEDS: levETIRAcetam 500 mg/5 ml Oral Solution PO SCH ×2 (07:51→20:30)
[2019-05-29] MEDS: busPIRone HCl 10 MG TAB PO SCH ×2 (07:52→20:24)
[2019-05-29] MEDS: Aspirin Chewable 81 MG TAB PO SCH (07:53)
[2019-05-29] MEDS: Lisinopril 10 MG TAB PO SCH (07:53)
[2019-05-29] MEDS: Famotidine 20 MG TAB PO SCH ×2 (07:53→20:30)
[2019-05-29 08:38] LABS: Anion Gap 12 mmol/L (10-20); BUN (Urea Nitrogen) 5 mg/dL (9.8-20.1); CK (CPK) 802 U/L (29-168); Calc. Creatinine Clearance 87 mL/min (70-130); Calcium 8.3 mg/dL (7.8-10.44); Carbon Dioxide 20 mmol/L (23-31); Chloride 111 mmol/L (98-107); Estimated GFR-MDRD Greater than 90; Glucose 94 mg/dL (80-115); Potassium 3.9 mmol/L (3.5-5.1); Sodium 139 mmol/L (136-145)
[2019-05-29] MEDS: Enoxaparin Sodium 60 MG/0.6 ML SYRINGE SC SCH (09:42)
--- NOTE | 2019-05-29 16:27 | PRG ---
DATE OF SERVICE: 05/29/2019 SUBJECTIVE: The patient is seen and examined at bedside. She is not very responsive. There is no any contact with this lady. PHYSICAL EXAMINATION: Very limited because she does not follow. VITAL SIGNS: Her temperature is 99.9, pulse is 82, respiratory rate is 16, O2 saturation is 95% to 97% on room air, her blood pressure is 131/83. LUNGS: Clear. HEART: S1 and S2, normal. ABDOMEN: Soft and nondistended. EXTREMITIES: No cyanosis or edema. NEUROLOGIC: As mentioned. There is no any contact with this lady. She does not talk. She does not follow my commands. LABORATORY DATA: Showed sodium of 139, potassium 3.9, chloride 111, CO2 of 20, BUN 5, creatinine 0.58. CPK is 802. Calcium 8.3. IMPRESSION: 1. Left upper extremity venous thrombosis, basilic vein involved. She is switched from Lovenox to apixaban 5 mg twice a day. 2. Rhabdomyolysis. Her CPK still 800. We will continue IV fluids. 3. Dementia, multi-infarct. 4. Bipolar disorder. 5. Seizure disorder, chronic, stable. 6. Status post inferior vena cava filter for deep venous thrombosis and pulmonary emboli. PLAN: To continue her IV fluids at 90 mL/h. Check CPK in the morning. Continue apixaban, discontinue Lovenox and continue other regimen. She should be able [facility] back to the [facility] in the next 24 hours. Job ID: [id number]
[2019-05-29] MEDS: Apixaban 5 MG TAB PO SCH (20:23)
--- NOTE | 2019-05-29 20:44 | DIS ---
DATE OF ADMISSION: 05/27/2019 DATE OF DISCHARGE: 05/29/2019 DIAGNOSES AT THE TIME OF DISCHARGE: 1. Left upper extremity venous thrombosis involving left basilic vein. 2. Dementia, multi-infarct. 3. Bipolar disorder. 4. Seizure disorder. 5. Status post inferior vena cava filter for deep venous thrombosis and thrombosis and pulmonary emboli. 6. Rhabdomyolysis with significant improvement on her CPK down from 1300 to 800. Job ID: [id number]
[2019-05-29] MEDS ORDERED: Mirtazapine 15 MG TAB PO SCH (21:00)
[2019-05-29] MEDS ORDERED: Atorvastatin Calcium 20 MG TAB PO SCH (21:00)
[2019-05-30] MEDS: Sodium Chloride 0.9% 1,000 ML IV SCH ×3 (01:12→16:37)
[2019-05-30] MEDS: busPIRone HCl 10 MG TAB PO SCH (08:25)
[2019-05-30] MEDS: Lisinopril 10 MG TAB PO SCH (08:26)
[2019-05-30] MEDS: Apixaban 5 MG TAB PO SCH (08:26)
[2019-05-30] MEDS: levETIRAcetam 500 mg/5 ml Oral Solution PO SCH (08:27)
[2019-05-30] MEDS: Aspirin Chewable 81 MG TAB PO SCH (08:27)
[2019-05-30] MEDS: Famotidine 20 MG TAB PO SCH (08:27)
[2019-05-30] MEDS: Phenytoin 50 MG Chewable Tablet PO SCH ×2 (08:43→15:16)
[2019-05-30 17:12] VITALS: BP 160/78; TEMP 97.7
--- NOTE | 2019-05-31 05:56 | DIS ---
DATE OF ADMISSION: 05/27/2019 DATE OF DISCHARGE: 05/30/2019 DISCHARGE DIAGNOSES: 1. Left upper extremity venous thrombosis of the left basilic vein. 2. Multi-infarct dementia. 3. Bipolar disorder. 4. Seizure disorder. 5. Status post inferior vena cava filter for deep venous thrombosis and pulmonary emboli. 6. Rhabdomyolysis, improved. 7. Bed-bound status. CONSULTATIONS: None. PERTINENT LABORATORY AND X-RAY FINDINGS: 1. Basic metabolic profile within normal limits. Magnesium 2.2. Lactic acid level 1.9. Total CK ranged between 510-1380. CRP 1.14. Lipase 28. CBC showed a hemoglobin ranging between 12.1 to 13.5. PT 13.0, INR 1.0, PTT 25.6. Blood cultures x2 dated 05/27/2019, showed no growth at 48 hours. 2. Three views of the left forearm dated 05/27/2019, showed no acute process. 3. Three views of the left wrist dated 05/27/2019, showed no acute process. 4. Venous Doppler study of the left upper extremity dated 05/27/2019, showed venous thrombosis of the left basilic vein. HOSPITAL COURSE: Patient was initially admitted to the medical floor after presenting with left forearm redness and swelling. The patient is a shelter resident in [place] presenting with left forearm erythema and edema. The patient underwent plain radiographs of the left upper extremity showing no acute bony abnormality. Vascular ultrasound did confirm a left basilic vein thrombus at which point patient was initiated on Lovenox. The patient was also noted with concomitant rhabdomyolysis with initial total CK of 1380. The patient was placed on IV fluids as well as subcutaneous Lovenox and given supportive management throughout the hospital course. The patient did receive thermal therapy with a K-pad to the left upper extremity throughout the hospital course. Serial monitoring of total CK showed overall improving values with IV fluid hydration. The patient transitioned from Lovenox to Eliquis and tolerated 5 mg b.i.d. Overall, patient did remain clinically stable through the remainder of the hospital course. I have examined the patient the time of discharge with followup instructions and disposition planning on 05/30/2019. DISCHARGE MEDICATIONS: 1. Lipitor 20 mg p.o. at bedtime. 2. Bisacodyl 10 mg per rectum daily p.r.n. 3. Buspirone 20 mg p.o. b.i.d. 4. Vitamin D3 2000 units p.o. b.i.d. 5. Keppra 500 mg p.o. b.i.d. 6. Zestril 10 mg p.o. daily. 7. Mirtazapine 15 mg p.o. at bedtime. 8. Dilantin 50 mg p.o. t.i.d. 9. Eliquis 5 mg p.o. b.i.d. 10. Enteric-coated aspirin 81 mg p.o. daily. FOLLOWUP: The patient will follow up with Dr. Baeza at [facility] after discharge. CONDITION ON DISCHARGE: Stable. ACTIVITY: Ad-shaina. DIET: Heart healthy. CODE STATUS: Full. DISPOSITION: Discharged to [facility] 05/30/2019. TIME SPENT WITH PATIENT: Total time preparing and coordinating discharge 33 minutes. Job ID: [id number]
== END 2019-05-30 18:43 | DRG 300 ==
LOC: ERS 12:50 → T4-A 16:09
PROVIDERS: ADMIT Internal Medicine; ATTEND Internal Medicine
DX: I82.612 Acute embolism and thrombosis of superficial veins of left upper extremity (principal); F01.51 Vascular dementia, unspecified severity, with behavioral disturbance; M62.82 Rhabdomyolysis; F01.50 Vascular dementia, unspecified severity, without behavioral disturbance, psychotic disturbance, mood disturbance, and anxiety; F31.9 Bipolar disorder, unspecified; I10 Essential (primary) hypertension; F41.1 Generalized anxiety disorder; G40.909 Epilepsy, unspecified, not intractable, without status epilepticus; Z86.711 Personal history of pulmonary embolism; Z74.01 Bed confinement status
CPT/HCPCS: 36415; 36416; 80048; 80053; 81001; 82550; 83605; 83690; 83735; 85025; 85610; 85730; 86140; 87040; 96372; A4353; J1650

== ENCOUNTER 2019-08-30 11:33 | Emergency (ER) | payer OTHER ==
[2019-08-30 12:14] LABS: #Lymphocytes 1.5 thou/uL (1.20-3.40); #Monocytes 0.7 thou/uL (0.11-0.59); #Neutrophils 4.8 thou/uL (1.40-6.50); %Basophils 0.3 % (0.0-1.0); %Eosinophils 0.2 % (0.0-10.0); %Lymphocytes 21.8 % (21.0-51.0); %Monocytes 9.3 % (0.0-10.0); %Neutrophils 68.4 % (42.0-75.0); Hemoglobin 13.9 g/dL (12.0-16.0); Mean Corpuscular HGB CONC 33.9 g/dL (32.0-36.0); Mean Corpuscular Hemoglobin 34.9 pg (27.0-31.0); Mean Platelet Volume 6.5 fL (7.4-10.4); Platelet Count 238 thou/uL (130-400); RBC Distribution Width 11.7 % (11.5-14.5); Red Blood Cell (RBC) Count 3.98 mill/uL (4.20-5.40)
--- NOTE | 2019-08-30 12:28 | CT ---
CT BRAIN NONCONTRAST: DATE: 08/30/2019 HISTORY: 63-year-old female with altered mental status, increasing lethargy, nausea and vomiting, and anorexia . COMPARISON: 05/16/2018 FINDINGS: There is no evidence of acute intra-axial or extra-axial hemorrhage. There is no midline shift or any other mass effect. There is no extra-axial fluid collection. There is moderate dilation of lateral ventricles bilaterally. Mild to moderate dilation of third ventricle. Normal fourth ventricle size. C alvarium is intact. There is diffuse brain parenchymal volume loss. There are low attenuation areas in the white matter. These are nonspecific, but in a patient of this age, they are probably chronic i schemic white matter changes due to microvascular atherosclerosis. No interval change overall. IMPRESSION: 1) No acute intracranial findings. 2) involutional changes and chronic ischemic white matter changes. 3) chronic ventriculomegaly, unchanged.
[2019-08-30 12:36] LABS: ALT (SGPT) 9 U/L (8-55); AST (SGOT) 14 U/L (5-34); Albumin 3.5 g/dL (3.4-4.8); Alkaline Phosphatase 150 U/L (40-110); Anion Gap 12 mmol/L (10-20); BUN (Urea Nitrogen) 8 mg/dL (9.8-20.1); Bilirubin, Total 0.2 mg/dL (0.2-1.2); Calc. Creatinine Clearance 0 mL/min (70-130); Calcium 8.6 mg/dL (7.8-10.44); Carbon Dioxide 27 mmol/L (23-31); Chloride 103 mmol/L (98-107); Estimated GFR-MDRD 83; Globulin 3.2 g/dL (2.4-3.5); Glucose 103 mg/dL (80-115); Potassium 3.9 mmol/L (3.5-5.1); Protein, Total 6.7 g/dL (6.0-8.3); Sodium 138 mmol/L (136-145)
[2019-08-30 12:39] LABS: Bilirubin Negative (Negative); Blood, Urine Negative (Negative); Clarity Clear (Clear); Glucose, Urine (Dipstick) Normal (Negative); Leukocyte Negative Leu/uL (Negative); Nitrite Negative (Negative); Protein, Urine (Dipstick) Negative (Neg-Trace); Urobilinogen Normal mg/dL (Less than 2)
== END 2019-08-30 14:17 | disposition home or self-care (01) ==
LOC: ERS 11:33
DX: R11.2 Nausea with vomiting, unspecified (principal); I10 Essential (primary) hypertension; G40.909 Epilepsy, unspecified, not intractable, without status epilepticus; F03.90 Unspecified dementia, unspecified severity, without behavioral disturbance, psychotic disturbance, mood disturbance, and anxiety; Z86.711 Personal history of pulmonary embolism; E78.5 Hyperlipidemia, unspecified; Z86.718 Personal history of other venous thrombosis and embolism; E78.00 Pure hypercholesterolemia, unspecified; F31.9 Bipolar disorder, unspecified; F41.9 Anxiety disorder, unspecified; Z79.82 Long term (current) use of aspirin; Z79.899 Other long term (current) drug therapy; Z79.01 Long term (current) use of anticoagulants
CPT/HCPCS: 36415; 51701; 70450; 80053; 81003; 84484; 85025; 93005; 96360; 96361